=== PATIENT | female | born 1945 | race Caucasian/White ===

== ENCOUNTER 2017-02-12 13:26 | Emergency (ER) | payer MEDICARE, OTHER ==
[~2017-02-12] VITALS: Ht 175.3 cm; Wt 55.1 kg
[~2017-02-12 13:26] MED LIST: AMLO-39 PO; ASPI162T PO; CA C1TAB88 PO; CALC-795 PO; GLUC-125 PO; IND25C PO; MULT-1018 PO; OXB5T PO; PLAN450C PO; PROT40T PO; SENN-60 PO; TOPR25T PO; ducolax PO; fish oil; magnesium/zinc
[2017-02-12 13:30] VITALS: BP 163/65; PULSE 58; RESP 16; O2SAT 99
[2017-02-12 14:27] LABS: BASOPHILS % (AUTO) 0.6 % (0-3); EOSINOPHILS % (AUTO) 2.9 % (0-5); MONOCYTES % (AUTO) 8.7 % (4-12); Mean Corpuscular Hemoglobin 30.4 pg (27.0-35.0); Mean Corpuscular Volume 90.6 fL (81-100); NEUTROPHILS % (AUTO) 61.5 % (40-74); Platelet Count 141 bil/L (150-400)
--- NOTE | 2017-02-12 14:34 | DRSVH ---
PROCEDURE: X-RAY CHEST ONE VIEW, PORTABLE ([id number]) INDICATIONS: CHEST PAIN TECHNIQUE: One view of the chest was acquired. COMPARISON: [facility], , CHEST 1VW (PORTABLE), 05/19/2013, 13:19. FINDINGS: Surgical changes and devices: Postoperative changes are noted involving one of the lower left ribs. Lungs and pleura: No pleural effusions or pneumothorax. Lungs are clear. There is a calcified gran uloma within the right lung. Mediastinum: Mediastinal contours appear normal. The heart appears enlarged. Bones and chest wall: No suspicious bony lesions. Overlying soft tissues appear unremarkable. IMPRESSION: Cardiomegaly without overt heart failure. No definite pneumonia. Dictated by: Isrrael Jacobson M.D. on 02/12/2017 at 13:32 Approved by: Isrrael Jacobosn M.D. on 02/12/2017 at 13:32
[2017-02-12 14:57] VITALS: BP 159/65; PULSE 53; RESP 20; O2SAT 99
[2017-02-12 14:57] LABS: Magnesium 2.2 mg/dL (1.6-2.6)
[2017-02-12 15:06] LABS: TROPONIN T < 0.010 ug/L (0.0-0.011)
[2017-02-12 16:02] VITALS: BP 151/72; PULSE 61; RESP 13; O2SAT 100
[2017-02-12 18:07] VITALS: BP 149/82; PULSE 61; RESP 14; O2SAT 100
--- NOTE | 2017-02-12 18:46 | ED.REPORT ---
HPI-Chest Pain 40 and Over Date of Service Feb 12, 2017 ED Provider: Lawrence Milligan MD Patient is a 71-year-old woman with history of hypertension, atrial fibrillation , 2 previous strokes, and diabetes who presents to the emergency department after a failed stress test today. She was 3 minutes and 17 seconds in when she developed chest pain, dizziness, lightheadedness, and neck pain. The stress test was stopped and it was recommended that she come to the emergency department for evaluation. She has nitroglycerin that she takes typically 0-2 times per week for chest pain. She has associated headache, shortness of breath , she additionally has urinary frequency and blood in stools from hemorrhoids. She has had no vision changes, nausea, vomiting, or abdominal pain. Nursing Notes Stated Complaint: CHEST PAIN,DIZZY,LIGHTHEADED Chief Complaint: Chest Pain Nursing Notes Reviewed: Yes Allergies: Coded Allergies: Contrast Media (Verified Allergy, Severe, 10/26/13) Seizure Gadelomian gabapentin (Verified Allergy, Severe, anaphlatics, 02/12/17) lisinopril (Unverified Allergy, Intermediate, 10/26/13) "I was sick and nausea." metformin (Verified Allergy, Unknown, 05/24/14) simvastatin (Verified Allergy, Unknown, 05/24/14) tramadol (Verified Allergy, Unknown, 05/24/14) unknown clopidogrel bisulfate (Verified Adverse Reaction, Unknown, bleeding, ) meclizine (Verified Adverse Reaction, Unknown, dizzy, 05/24/14) Uncoded Allergies: usinopril (Allergy, Unknown, 05/24/14) unknown Scheduled ([magnesium/zinc]) 400 MG DAILY ([ducolax ]) 100 MG PO DAILY ([ fish oil]) 500 MG HS AmLODIPine-Expunged Drug, Do Not Renew! (AmLODIPine-Expunged Drug, Do Not Renew! ) 5 Mg Tablet 5 MG PO DAILY Aspirin (Halfprin) 162 Mg Tablet.dr 81 MG PO DAILY Ca Carbonate/Vitamin D3/Vit K (Viactiv Soft Chew Tablet) 1 Each Tab.chew 1 EACH PO Q48 Calcium Carb/Vit D3/Minerals (Calcium +D & Min Chew Tab) 1 Each Tab.chew 1 EACH PO Q48 Gluc/Hunter-Msm#3/Cem/Bosw/Bor (Glucosamine Chondroitin Sftgl) 1 Each Capsule 1 EACH PO DAILY Indomethacin-Expunged Drug, Do Not Renew! (Indocin-Expunged Drug, Do Not Renew! ) 25 Mg Capsule 25 MG PO TID TAKE WITH FOOD MULTIVITAMIN-Expunged Drug, Do Not Renew! (MULTI VITAMIN -Expunged Drug, Do Not Renew!) 1 Each Tablet 1 EACH PO DAILY Metoprolol Suc-Expunged Drug, Do Not Renew! (Metoprolol Suc-Expunged Drug, Do Not Renew!) 25 Mg Tber 25 MG PO DAILY Oxybutynin-Expunged Drug, Do Not Renew! (DITROPAN-Expunged Drug, Do Not Renew!) 5 Mg Tab 5 MG PO BID Pantoprazole-Expunged Drug, Do Not Renew! (Protonix-Expunged Drug, Do Not Renew! ) 40 Mg Tablet.dr 40 MG PO DAILY Plant Stanol Kaela (Cholest Off Plus) 450 Mg Capsule 450 MG PO HS Sennosides-Expunged Drug, Do Not Renew! (Senokot-Expunged Drug, Do Not Renew!) 8.6 Mg Tablet 17.2 MG PO MOWEFR General Time Seen by MD: 02:45 Chief Complaint Chest pain, Shortness of breath Hx Obtained From: Patient Sudden in Onset?: Yes (level II of exercise stress test) Past Medical History Past Medical History Diabetes Atrial fibrillation Flail chest due to a ground-level fall 5 years ago Hypertension 2 strokes Hip pain Hemorrhoids Past Surgical History ORIF of the ribs 4 years ago on the left side Hip fracture ORIF Left knee replacement Smoking History Never Smoker Social History Alcohol Use: "Social" Drug Use: Denies drug use Other Social History: Ambulatory Status Independent Review of Systems A comprehensive review of systems was conducted with the patient and found to be negative except as above in the History of Present Illness. Physical Exam Initial Vital Signs Vital Signs (First) Date Time Temp Pulse Resp B/P Pulse Ox O2 Delivery O2 Flow Rate FiO2 02/12/17 13:30 36.6 58 16 163/65 99 Room Air Initial VS: Reviewed, Vital signs abnormal (hypertensive) Head / Eyes: Atraumatic, Normocephalic, PERRL ENT: Mucous membranes moist, Conjunctiva normal, No scleral icterus Neck: Supple, Non-tender, Full range of motion Back: No CVA tenderness Lymphatic: No lymphadenopathy Extremities: Vascular intact, Neuro intact, No swelling, No tenderness Skin: Warm, Dry, No cyanosis Neurologic: Alert, Oriented, Nonfocal Psychiatric: Mood/affect normal (previously tearful), Behavior normal, Normal thought content General/Constitutional: Awake, Alert, No acute distress Respiratory / Chest: Atraumatic, Breath sounds NL, No respiratory distress Cardiovascular: Regular rhythm Heart Rate / Rhythm: Positive: Bradycardia Interpretation & Diagnostics Interpretation & Diagnostics: Troponin negative 2 Lab Results Interpretation Result Diagram: 02/12/17 1357 02/12/17 1357 Test 02/12/17 13:57 02/12/17 17:00 White Blood Count 4.8th/mm3 (3.8-10.1) Red Blood Count 4.15mil/mm3 (3.90-5.20) Hemoglobin 12.6g/dL (12.0-15.6) Hematocrit 37.6% (35.0-46.0) Mean Corpuscular Volume 90.6fL (81-100) Mean Corpuscular Hemoglobin 30.4pg (27.0-35.0) Mean Corpuscular Hemoglobin Concent 33.5% (32.0-37.0) Red Cell Distribution Width 12.9% (12.3-15.4) Platelet Count 141bil/L (150-400) Neutrophils (%) (Auto) 61.5% (40-74) Lymphocytes (%) (Auto) 26.3% (14-46) Monocytes (%) (Auto) 8.7% (4-12) Eosinophils (%) (Auto) 2.9% (0-5) Basophils (%) (Auto) 0.6% (0-3) Sodium Level 138mEq/L (134-144) Potassium Level 3.9mEq/L (3.5-5.2) Chloride Level 98mEq/L (97-108) Carbon Dioxide Level 25mmol/L (18-29) Blood Urea Nitrogen 20mg/dL (8-27) Creatinine 0.73mg/dL (0.57-1.00) Estimat Glomerular Filtration Rate 112mL/min (>59) Glucose Level 97mg/dL (60-99) Calcium Level 10.1mg/dL (8.5-10.1) Magnesium Level 2.2mg/dL (1.6-2.6) Total Bilirubin 0.3mg/dL (0.0-1.2) Aspartate Amino Transf (AST/SGOT) 37U/L (0-50) Alanine Aminotransferase (ALT/SGPT) 26U/L (0-32) Alkaline Phosphatase 57U/L (25-165) Total Protein 7.6g/dL (6.4-8.4) Albumin 4.6g/dL (3.4-5.0) Troponin T < 0.010ug/L (0.0-0.011) Re-Eval/Medical Decision Med Decision/Clinical Course Patient is a 71-year-old woman with hypertension, atrial fibrillation, and chest pain who presents to the emergency department after failed stress test. Cardiac workup is negative with negative troponins. Patient is bradycardic with an EKG showing sinus bradycardia at a rate of 46. She is seen by [facility] Dr. Dailey and has appointment with her this Saturday. She has had resolution of her chest pain, shortness of breath, and headache. She is stable at the time of discharge. Consultation : Referral / Consult Name: Kirill Kumar MD Consulted With: Cardiology Requested Call at: 16:25 Call Returned at: 16:28 Perforator: Agrees with plan Note: Recommends rechecking troponin and admitting if positive, sending home if negative. He recommends norvasc 5 mg daily which patient is already taking. Counseled Regarding: Diagnosis, Lab results, Need for follow-up, When/why to return to ED Discharge & Departure Primary Impression: Chest pain on exertion Disposition: Home Discharge Condition All VS Reviewed: Yes Additional Instructions: Thank you for interesting aspect her care today. Your lab values are negative for stress on her heart at this time. Please work to make the most of each day. It is wonderful that you feel comfortable talking with her family about her wishes. Please return to the emergency department for acute onset chest pain, was sweating, arm pain, or impending sense of doom. Please follow-up with your [facility] office within the next 2 weeks. Can Continue to take her medications as prescribed Referrals: Venus Yoon MD (PCP) copies to: Venus Yoon MD, Erika R DO Feb 12, 2017 16:32
== END 2017-02-12 18:10 | disposition home or self-care (01) ==
LOC: SED 13:26
DX: R07.9 Chest pain, unspecified (principal); R42 Dizziness and giddiness; R06.02 Shortness of breath; M54.2 Cervicalgia; R51 Headache; I11.9 Hypertensive heart disease without heart failure; I48.91 Unspecified atrial fibrillation; E11.59 Type 2 diabetes mellitus with other circulatory complications; Z86.73 Personal history of transient ischemic attack (TIA), and cerebral infarction without residual deficits; Z79.82 Long term (current) use of aspirin; Z88.5 Allergy status to narcotic agent; Z88.8 Allergy status to other drugs, medicaments and biological substances; Z91.041 Radiographic dye allergy status